=== PATIENT | female | born 1950 | race Caucasian/White ===

== ENCOUNTER → 2018-07-24 | Outpatient (CLI) | payer BC ==
[~2018-07-24] MED LIST: CALCIUM WITH VI1 TAB PO; GLUCOSAMINE SU750 M1 PO; METAMUCIL1 PDR PO; VAGIFEM25 MCG PO
== END ==
LOC: MC.RAD 07:48
DX: Z12.31 Encounter for screening mammogram for malignant neoplasm of breast (principal)

== ENCOUNTER 2020-07-31 13:38 | Emergency (ER) | payer BC ==
[~2020-07-31] VITALS: Ht 162.6 cm; Wt 52.7 kg
[2020-07-31 13:51] VITALS: TEMP 98.5
[2020-07-31] MEDS ORDERED: ESTRACE0.5 MG PO (14:18)
[2020-07-31] MEDS ORDERED: PRAVACHOL 20MG20 MG PO (14:19)
[2020-07-31] MEDS ORDERED: TENORMIN 2525 MG/TAB PO (14:19)
[2020-07-31 14:26] LABS: BASO % 0.3 % (0.0-2.0); EOS # 0.1 (0.0-0.7); GRAN # 3.8 (1.4-6.5); GRAN % 59.8 % (42.2-75.2); HEMATOCRIT 40.1 % (37.0-47.0); HEMOGLOBIN 13.2 g/dl (12.5-16.0); LYMPH # 1.8 (1.2-3.4); MEAN CELL VOLUME 88 fl (80.0-100.0); MEAN CORPUSCULAR HEMOGLOBIN 29 pg (27.0-31.0); MEAN CORPUSCULAR HGB CONC 33 g/dl (33.0-37.0); MEAN PLATELET VOLUME 9.4 fl (7.4-10.4); MONO # 0.6 (0.1-0.6); MONO % 8.7 % (1.7-9.3); PLATELET COUNT 262 K/mm3 (130-400); RED BLOOD COUNT 4.54 M/mm3 (4.10-5.30); REDCELL DISTRIBUTION WIDTH-CV 13.8 % (11.5-14.5)
[2020-07-31 14:34] LABS: PARTIAL THROMBOPLASTIN TIME 35.2 SECONDS (26.0-37.0)
[2020-07-31 14:35] LABS: ALANINE AMINOTRANSFERASE 28 U/L (4-34); ALBUMIN 4.7 gm/dL (3.5-5.0); ALKALINE PHOSPHATASE 94 U/L (50-136); ANION GAP 9 mmol/L (7-16); AST,SGOT 30 U/L (15-37); BILIRUBIN,TOTAL 0.5 mg/dL (0.0-1.0); BLOOD UREA NITROGEN 17 mg/dL (7-17); CARBON DIOXIDE 26 mmol/L (22-30); CHLORIDE 101 mmol/L (98-107); CREATININE, serum 0.65 (0.52-1.25); GLUCOSE 129 mg/dL (74-106); POTASSIUM 3.5 mmol/L (3.4-5.0); SODIUM 136 mmol/L (137-145)
[2020-07-31 14:47] LABS: TROPONIN-I < 0.012 ng/mL (0.000-0.035)
[2020-07-31] MEDS ORDERED: ELIQUIS 5MG PO (15:58)
[2020-07-31 16:15] VITALS: BP 122/75; PULSE 70
== END 2020-07-31 16:16 | disposition home or self-care (01) ==
LOC: COL.ER 13:38
PROVIDERS: Family Medicine
DX: I48.20 Chronic atrial fibrillation, unspecified (principal); Z79.01 Long term (current) use of anticoagulants
CPT/HCPCS: J7030

== ENCOUNTER → 2020-08-28 | Outpatient (CLI) | payer BC ==
[~2020-08-28] MED LIST changes: +ELIQUIS 5MG PO; +ESTRACE0.5 MG PO; +PRAVACHOL 20MG20 MG PO; +TENORMIN 2525 MG/TAB PO
== END ==
LOC: COL.RAD 11:39
DX: E05.90 Thyrotoxicosis, unspecified without thyrotoxic crisis or storm (principal)
CPT/HCPCS: A9517